=== PATIENT | female | born 1995 | race Two or more races ===

== ENCOUNTER 2022-09-16 13:44 | Outpatient (CLI) | payer OTHER | END 2022-09-16 15:45 | disposition home or self-care (01) | LOC: PRENATAL 13:44 | PROVIDERS: ATTEND Obstetrics & Gynecology Maternal & Fetal Medicine | DX: O36.80X0 Pregnancy with inconclusive fetal viability, not applicable or unspecified (principal); Z3A.14 14 weeks gestation of pregnancy ==

== ENCOUNTER 2022-10-18 11:05 | Emergency (ER) | payer OTHER ==
[~2022-10-18] VITALS: Ht 167.6 cm; Wt 59.0 kg
[2022-10-18] MEDS ORDERED: PRENATA CHEWAB1 EACH (11:52)
[2022-10-18] MEDS ORDERED: ZITHROMAX500 MG PO (14:52)
== END 2022-10-18 15:12 | disposition home or self-care (01) ==
LOC: ER 11:05
DX: J06.9 Acute upper respiratory infection, unspecified (principal); Z20.822 Contact with and (suspected) exposure to COVID-19

== ENCOUNTER 2022-10-29 13:33 | Outpatient (CLI) | payer OTHER ==
[~2022-10-29 13:33] MED LIST: PRENATA CHEWAB1 EACH; ZITHROMAX500 MG PO
== END 2022-10-29 15:00 | disposition home or self-care (01) ==
LOC: PRENATAL 13:33
PROVIDERS: ATTEND Obstetrics & Gynecology Maternal & Fetal Medicine
DX: O35.9XX0 Maternal care for (suspected) fetal abnormality and damage, unspecified, not applicable or unspecified (principal); O35.3XX0 Maternal care for (suspected) damage to fetus from viral disease in mother, not applicable or unspecified; O09.219 Supervision of pregnancy with history of pre-term labor, unspecified trimester; Z3A.20 20 weeks gestation of pregnancy

== ENCOUNTER 2022-12-20 10:11 | Outpatient (CLI) | payer OTHER | END 2022-12-20 12:15 | disposition home or self-care (01) | LOC: PRENATAL 10:11 | PROVIDERS: ATTEND Obstetrics & Gynecology Maternal & Fetal Medicine | DX: O26.849 Uterine size-date discrepancy, unspecified trimester (principal); O35.9XX0 Maternal care for (suspected) fetal abnormality and damage, unspecified, not applicable or unspecified; O36.8199 Decreased fetal movements, unspecified trimester, other fetus; Z3A.28 28 weeks gestation of pregnancy ==

== ENCOUNTER 2023-01-20 10:51 | Outpatient (CLI) | payer OTHER | END 2023-01-20 12:08 | disposition home or self-care (01) | LOC: PRENATAL 10:51 | PROVIDERS: ATTEND Obstetrics & Gynecology Maternal & Fetal Medicine | DX: O26.849 Uterine size-date discrepancy, unspecified trimester (principal); O35.9XX0 Maternal care for (suspected) fetal abnormality and damage, unspecified, not applicable or unspecified; O36.8199 Decreased fetal movements, unspecified trimester, other fetus; Z3A.32 32 weeks gestation of pregnancy ==

== ENCOUNTER 2023-02-17 14:28 | Outpatient (CLI) | payer OTHER | END 2023-02-17 16:25 | disposition home or self-care (01) | LOC: PRENATAL 14:28 | PROVIDERS: ATTEND Obstetrics & Gynecology Maternal & Fetal Medicine | DX: O26.849 Uterine size-date discrepancy, unspecified trimester (principal); O35.3XX0 Maternal care for (suspected) damage to fetus from viral disease in mother, not applicable or unspecified; O36.8199 Decreased fetal movements, unspecified trimester, other fetus; Z3A.36 36 weeks gestation of pregnancy ==

== ENCOUNTER 2023-02-24 02:40 | Inpatient (IN) | payer OTHER ==
[~2023-02-24] VITALS: Ht 160 cm; Wt 2.7 kg
[2023-02-24] MEDS ORDERED: PRENATAL TABLE1 EAC4 PO (02:45)
[2023-02-24] MEDS ORDERED: PEPCID AC20 MG PO (02:45)
[2023-02-26] MEDS ORDERED: COLACE100 MG PO (17:27)
[2023-02-26] MEDS ORDERED: IBU800 MG PO (17:28)
[2023-02-26] MEDS ORDERED: SIMETHICONE125 M1 PO (17:28)
[2023-02-26] MEDS ORDERED: SODIUM CHLORIDE10 M3 NASAL (17:34)
[2023-02-26] MEDS ORDERED: ZITHROMAX TRI-500 MG PO (17:37)
== END 2023-02-26 18:06 | disposition home or self-care (01) | DRG 784 ==
LOC: O/R 02:40 → OB/GYN 02:40 → LDR 02:40 → O/R 13:31 → OB/GYN 18:49
PROVIDERS: ADMIT Obstetrics & Gynecology; ATTEND Obstetrics & Gynecology
PROC: 0UB70ZZ Excision of Bilateral Fallopian Tubes, Open Approach (ICD-10-PCS; 2023-02-24)
PROC: 3E0F7GC Introduction of Other Therapeutic Substance into Respiratory Tract, Via Natural or Artificial Opening (ICD-10-PCS; 2023-02-24)
PROC: 4A1HXCZ Monitoring of Products of Conception, Cardiac Rate, External Approach (ICD-10-PCS; 2023-02-24)
PROC: 30233N1 Transfusion of Nonautologous Red Blood Cells into Peripheral Vein, Percutaneous Approach (ICD-10-PCS; 2023-02-24)
PROC: 10D00Z1 Extraction of Products of Conception, Low, Open Approach (ICD-10-PCS; principal; 2023-02-24 13:15)
DX: O60.14X0 Preterm labor third trimester with preterm delivery third trimester, not applicable or unspecified (principal); D62 Acute posthemorrhagic anemia; Z20.822 Contact with and (suspected) exposure to COVID-19; O99.892 Other specified diseases and conditions complicating childbirth; O99.02 Anemia complicating childbirth; N73.6 Female pelvic peritoneal adhesions (postinfective); Z3A.36 36 weeks gestation of pregnancy; Z37.0 Single live birth; Z30.2 Encounter for sterilization; O34.211 Maternal care for low transverse scar from previous cesarean delivery